=== PATIENT | male | born 1985 | race Caucasian/White ===

== ENCOUNTER 2020-12-13 12:46 | Emergency (ER) | payer OTHER ==
[~2020-12-13] VITALS: Ht 170.2 cm; Wt 102.0 kg
[2020-12-13] MEDS ORDERED: IBUP-2029 MT (14:36)
[2020-12-13] MEDS ORDERED: IBUPROFEN 800MG TABLET PO ONE (14:45)
[2020-12-13 15:01] VITALS: BP 127/95
== END 2020-12-13 15:02 | disposition home or self-care (01) ==
LOC: ER 13:56
DX: S09.8XXA Other specified injuries of head, initial encounter (principal); W22.8XXA Striking against or struck by other objects, initial encounter; Y93.89 Activity, other specified; Y92.89 Other specified places as the place of occurrence of the external cause; Y99.8 Other external cause status
CPT/HCPCS: 99282